=== PATIENT | female | born 1955 | race Caucasian/White ===

== ENCOUNTER → 2017-02-19 | Outpatient (CLI) | payer BC ==
--- NOTE | 2017-02-19 13:23 | ECHOS ---
Referral Reason:Abnormal EkG R94.31 MEASUREMENTS -------- HEIGHT: 157.5 cm WEIGHT: 61.7 kg BP: 129/84 FINDINGS -------- Utilizing the standard Domo protocol the patient was exercised for 6 minutes, 0 seconds, achieving a maximum heart rate of 139 , which is 89 % of predicted maximal heart rate. There was physiologic heart rate and blood pressure response to exercise. Max Heart Rate: 139 % of Max Predicted Heart Rate: 89 Rest Heart Rate: 86 Rest BP: 129/84 Max BP: 211/81 Mets Achieved: 7.1 The test was stopped because of fatigue. The test was stopped because the target heart rate was achieved. This level of exercise represents an average exercise tolerance for age. Sinus rhythm. In response to stress, the ECG showed no ST-T wave changes . In response to stress, the ECG showed no ST-T wave changes . There were normal blood pressure and heart rate responses to stress. LV size, wall thickness and systolic function are normal, with an EF of 60%. Echo images were acquired at peak stress which demonstrated appropriate augmentation of all left ventricular segments. CONCLUSIONS -------- 1. Utilizing the standard Domo protocol the patient was exercised for 6 minutes, 0 seconds, achieving a maximum heart rate of 139 , which is 89 % of predicted maximal heart rate. There was physiologic heart rate and blood pressure response to exercise. 2. The test was stopped because of fatigue. 3. This level of exercise represents an average exercise tolerance for age. 4. In response to stress, the ECG showed no ST-T wave changes . 5. No 2D echocardiographic evidence of inducible ischemia to achieved workload. [employer]: MEDHAT Zapata
== END | disposition home or self-care (01) ==
LOC: RADNMMAIN 09:15
PROVIDERS: ATTEND Internal Medicine Geriatric Medicine
DX: R94.31 Abnormal electrocardiogram [ECG] [EKG] (principal)
CPT/HCPCS: 93017; 93350

== ENCOUNTER 2020-10-02 16:48 | Emergency (ER) | payer BC, MEDICARE ==
[2020-10-02] MEDS ORDERED: SODIUM CHLORIDE 0.9% 1,000 ML IV STA (17:11)
[2020-10-02] MEDS ORDERED: FAMOTIDINE 20 MG/2 ML VIAL IV STA (17:11)
--- NOTE | 2020-10-02 17:15 | ED ---
Allergic Reaction HPI - General Chief complaint: Allergic Reaction Stated complaint: Anaphylaxis Time Seen by Provider: 10/02/20 17:02 Source: patient, EMS Mode of arrival: EMS Limitations: no limitations - History of Present Illness Initial Comments: This 65-year-old female presents with a complaint of being stung by a bee twice. She was stung in her left wrist area as well as her left leg. She was gardening and thinks that she stepped in a nest. She relates that she went into the house and sat on a chair and then had some mild shortness of breath, became diaphoretic, broke out in hives, and then had a syncopal event. She fell to the floor and injured her right elbow. She woke up and then her administered her an EpiPen. Shortly thereafter, her hives did resolve. She presents via EMS and they administer her some IV fluids, Solu-Medrol 125 mg IV, and Benadryl 50 mg. She is feeling much improved at this time. The patient also has a history of similar 2 years ago where she had a syncopal episode after a bee sting. She had the EpiPen prescribed at that time. She denies any chest pain. No other complaints or modifying factors. - Related Data Home Medications Medication Instructions Recorded Confirmed ALPRAZolam [Xanax] 0.25 mg PO DAILY 02/22/14 02/24/14 Aspirin 81 mg PO DAILY 02/22/14 02/24/14 Citalopram Hydrobromide [CeleXA] 20 mg PO HS 02/22/14 02/24/14 Esomeprazole Magnesium [NexIUM] 20 mg PO DAILY 02/22/14 02/24/14 atenoloL [Tenormin] 25 mg PO DAILY 02/22/14 02/24/14 Previous Rx's Medication Instructions Recorded predniSONE [Deltasone] 20 mg PO BID #6 tab 10/02/20 Allergies Allergy/AdvReac Type Severity Reaction Status Date / Time bee venom protein (honey bee) Allergy Anaphylaxis Verified 10/02/20 17:24 Review of Systems ROS Statement: Those systems with pertinent positive or pertinent negative responses have been documented in the HPI. ROS Other: All systems not noted in ROS Statement are negative. Past Medical History Past Medical History: GERD/Reflux, Hypertension Additional Past Medical History / Comment(s): "irregular heart rate" History of Any Multi-Drug Resistant Organisms: None Reported Past Surgical History: Cholecystectomy Additional Past Surgical History / Comment(s): D&C x2, bilateral breast biopsy Past Anesthesia/Blood Transfusion Reactions: Postoperative Nausea & Vomiting (PONV) Past Psychological History: No Psychological Hx Reported Smoking Status: Never smoker Past Alcohol Use History: Rare Past Drug Use History: None Reported General Exam - General Exam Comments Initial Comments: GENERAL: The patient is well nourished and well hydrated. VITAL SIGNS: Heart rate, blood pressure, respiratory rate reviewed as recorded in nurse's notes. EYES: Pupils are round and reactive. Extraocular movements are intact. No conjunctival / lid redness or swelling. ENT: No external evidence of injury, swelling, or ecchymosis. Airway is patent. Throat is clear. NECK: Nontender. No swelling or evidence of injury. No subcutaneous emphysema. Trachea is midline. No thyroid mass. HEART: Regular rate and rhythm. Good peripheral pulses. LUNGS/CHEST: Breath sounds clear and equal bilaterally. No rales, rhonchi, or wheezes. No ecchymosis, subcutaneous emphysema, or tenderness. ABDOMEN: Abdomen soft without tenderness. No palpable masses or organomegaly. No peritoneal signs. No abdominal wall swelling or ecchymosis. EXTREMITIES: There is some mild tenderness over her right elbow more over the lateral aspect over the radial head region with associated hematoma. Normal muscle tone and function. No thoracolumbar tenderness. NEUROLOGIC: Sensation is grossly intact. Cranial nerve exam reveals face is symmetrical, tongue is midline, speech is clear. SKIN: No abrasions or ecchymosis is noted. No induration or masses noted. There is a small area of erythema from the sting noted on the left wrist and also the left leg just proximal to the knee. PSYCHIATRIC: Alert and oriented. Appropriate behavior and judgment. Limitations: no limitations Course Vital Signs 10/02/20 10/02/20 16:50 18:27 Temperature 98 F 97.0 F L Pulse Rate 83 74 Respiratory 18 18 Rate Blood Pressure 121/60 112/62 O2 Sat by Pulse 98 95 Oximetry Medical Decision Making - Medical Decision Making The patient was seen and examined. All diagnostics were reviewed. The EKG shows a normal sinus rhythm at a rate of 75. There is some nonspecific ST-T wave changes noted diffusely. The PA intervals 180, QRS duration is 84, and the QTC intervals 504. The patient also received 20 mg of Pepcid intravenously as well as some mild IV fluid hydration. She already received Solu-Medrol and Benadryl intravenously per EMS. The x-ray of the right elbow does not show any evidence of fracture or acute process. It is felt to be more of a hematoma. She's feeling remarkably improved on recheck. It is felt as though she is stable for discharge. She does not want a refill of her EpiPen as she still has some available. Return parameters are discussed. She will be prescribed prednisone. She has Benadryl at home to take over the next 1-2 days as well. Close follow-up recommended. Disposition Clinical Impression: Bee sting, Allergic reaction, Anaphylaxis, Syncope, Contusion of right elbow Disposition: HOME SELF-CARE Condition: Good Instructions (If sedation given, give patient instructions): Anaphylaxis (ED), Insect Bite or Sting (ED) Additional Instructions: Please take your home Benadryl for the next 1-2 days as discussed Prescriptions: predniSONE [Deltasone] 20 mg PO BID #6 tab Is patient prescribed a controlled substance at d/c from ED?: No Referrals: Long Mendoza MD [Primary Care Provider] - 1-2 days Time of Disposition: 19:21
--- NOTE | 2020-10-02 17:51 | XR ---
EXAMINATION TYPE: XR elbow complete RT DATE OF EXAM: 10/02/2020 COMPARISON: NONE HISTORY: Swelling TECHNIQUE: 3 views FINDINGS: there is soft tissue swelling at the lateral aspect of the elbow joint. I see no fracture nor disloca tion. There is no sign of joint effusion. There is a small spur on the olecranon process. IMPRESSION: Soft tissue swelling. No fracture seen.
[2020-10-02 18:30] VITALS: BP 112/62; TEMP 97
[2020-10-02 20:07] VITALS: PULSE 70; RESP 20
== END 2020-10-02 20:07 | disposition home or self-care (01) ==
LOC: EC 16:48
DX: T63.441A Toxic effect of venom of bees, accidental (unintentional), initial encounter (principal); T78.2XXA Anaphylactic shock, unspecified, initial encounter; S50.01XA Contusion of right elbow, initial encounter; I10 Essential (primary) hypertension; K21.9 Gastro-esophageal reflux disease without esophagitis; Z79.52 Long term (current) use of systemic steroids; Z79.82 Long term (current) use of aspirin; W18.30XA Fall on same level, unspecified, initial encounter
CPT/HCPCS: 93005; 96374; 99285